=== PATIENT | male | born 1990 | race Caucasian/White ===

== ENCOUNTER 2018-07-25 04:28 | Emergency (ER) | payer SELFPAY ==
[2018-07-25] MEDS ORDERED: CEPHALEXIN 250 MG CAP ONE (04:58)
[2018-07-25] MEDS ORDERED: TETANUS & DIPHTHERIA TOX,ADULT 0.5 ML VIAL ONE (04:59)
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
[2018-07-25 07:33] VITALS: BP 112/71; TEMP 97.8; O2SAT 98
--- NOTE | 2018-07-25 10:22 | RAD REPORT ---
EXAM DESCRIPTION: CT - [id number] - 07/25/2018 6:29 am CLINICAL HISTORY: Trauma, head and neck injury. PAIN COMPARISON: No comparisons TECHNIQUE: Axial 5 mm thick images of the head were obtained. Axial 2 mm thick images of the cervical spine were obtained with sagittal and coronal reconstruction images generated and reviewed. All CT scans are performed using dose optimization technique as appropriate and may include automated exposure control or mA/KV adjustment according to patient size. FINDINGS: CT HEAD WITHOUT CONTRAST: No acute hemorrhage, hydrocephalus or extra-axial collection is identified.No areas of brain edema or midline shift. The paranasal sinuses and mastoids are clear.The calvarium is intact. Left-sided scalp hematoma noted . CT CERVICAL SPINE WITHOUT CONTRAST: No fracture or subluxation.No prevertebral soft tissues swelling is identified. IMPRESSION: No acute intracranial or cervical spine findings.
== END 2018-07-25 07:22 | disposition home or self-care (01) ==
LOC: ER 04:28
PROC: 0JQ00ZZ Repair Scalp Subcutaneous Tissue and Fascia, Open Approach (ICD-10-PCS; principal; 2018-07-25)
DX: S01.01XA Laceration without foreign body of scalp, initial encounter (principal); V87.8XXA Person injured in other specified noncollision transport accidents involving motor vehicle (traffic), initial encounter; Y92.410 Unspecified street and highway as the place of occurrence of the external cause; Z23 Encounter for immunization; F17.210 Nicotine dependence, cigarettes, uncomplicated
CPT/HCPCS: 70450; 72125; 90714; 99285